=== PATIENT | female | born 1985 | race Caucasian/White ===

== ENCOUNTER 2018-03-13 17:45 | Inpatient (IN) | payer OTHER ==
[2018-03-13] MEDS ORDERED: CITRIC ACID/SODIUM CITRATE 30 ML UNIT-DOSE CUP PO ONE (19:45)
[2018-03-13] MEDS ORDERED: ELECTROLYTE-148 SOLN 1,000 ML IV SCH ×2 (19:45→20:45)
--- NOTE | 2018-03-13 20:07 | HP ---
Past Medical History - Admission History Source: Patient Limitations to Obtaining History: No Limitations - Past Medical History Cardiovascular: No: HTN Pulmonary: No: Asthma Gastrointestinal: No: GERD Hepatobiliary: No: Hepatitis B, Hepatitis C Reproductive: No: PID ...: 5 ...Para: 3 ...Term: 3 ...: 0 ...Spon : 0 ...Induced : 1 ...EDC by [facility]: 03/21/18 Infectious Disease: No: HIV, MRSA, STD's Psych: No: Anxiety, Bipolar, Depression Endocrine: Yes: Other (GDM-diet) Additional Medical History: Maternal obesity - Past Surgical History Past Surgical History: Yes: Hx Myomectomy: No Hx Transabdominal Cerclage: No - Smoking History Smoking history: Current every day smoker Have you smoked in the past 12 months: Yes Aproximately how many cigarettes per day: 15 If you are a former smoker, when did you quit?: 07/27 - Alcohol/Substance Use Hx Alcohol Use: Yes (SOCIAL, not in ) History of Substance Use: reports: None - Social History ADL: Independent History of Recent Travel: No Home Medications - Allergies Allergies/Adverse Reactions: Allergies Allergy/AdvReac Type Severity Reaction Status Date / Time Penicillins Allergy Verified 03/13/18 18:25 - Home Medications Home Medications: Ambulatory Orders Vitamins (Sjr) - 1 tab PO DAILY 07/05/15 Ferrous Sulfate [Feosol] 325 mg PO BID 02/17/18 Review of Systems - Review of Systems Constitutional: reports: No Symptoms Eyes: reports: No Symptoms HENT: reports: No Symptoms Neck: reports: No Symptoms Cardiovascular: reports: No Symptoms Respiratory: reports: No Symptoms Gastrointestinal: reports: Abdominal Pain (abdominal pain and contractions) Genitourinary: reports: No Symptoms Breasts: reports: No Symptoms Reported Musculoskeletal: reports: No Symptoms Integumentary: reports: No Symptoms Neurological: reports: No Symptoms Endocrine: reports: No Symptoms Hematology/Lymphatic: reports: No Symptoms Psychiatric: reports: No Symptoms Pain Intensity: 5 Physical Exam - Maternity Vital Signs: Vital Signs Temperature 98.0 F 03/13/18 18:07 Pulse Rate 84 03/13/18 18:07 Respiratory Rate 18 03/13/18 18:07 Blood Pressure 114/66 03/13/18 18:07 O2 Sat by Pulse Oximetry (%) Constitutional: Yes: Well Nourished, No Distress, Calm Eyes: Yes: Conjunctiva Clear HENT: Yes: Atraumatic Neck: Yes: Supple Cardiovascular: Yes: Regular Rate and Rhythm Lungs: Clear to auscultation - Abdominal Exam/OB Number of Fetuses: Single Presentation: Vertex Contractions: Yes Regularity: Irregular Intensity: Mild/Mod Monitor Mode: External Heart Rate (range): 120 Category: I Accelerations: Uniform Decelerations: None - Vaginal Exam/OB Amniotic Membrane Status: Intact - Physical Exam Edema: No Psychiatric: Yes: Alert, Oriented Hemorrhage Risk Assessment - Risk Factors Medium Risk Factors: Yes: Prior , uterine surgery,or multiple laparotomies High Risk Factors: Yes: None Risk Score: 1 Risk Level: Medium Risk Problem List - Problems (1) Uterine scar from previous delivery Code(s): O34.219 - MATERNAL CARE FOR UNSP TYPE SCAR FROM PREVIOUS DEL (2) Abdominal pain complicating Code(s): O26.899 - OTH RELATED CONDITIONS, UNSPECIFIED TRIMESTER; R10.9 - UNSPECIFIED ABDOMINAL PAIN Assessment/Plan 32 y/o with SIUP at 38.6 weeks, planned section on 03/14/18 who presents to labor and delivery with abdominal pain and contractions. Plan for repeat c section. R/B/A discussed, consents signed, questions answered anesthesia and nursery aware
[2018-03-13] MEDS ORDERED: morphine SULFATE/Preservative Free 0.5 MG/ML (1cc Syringe) EP ONE (20:32)
[2018-03-13] MEDS ORDERED: ONDANSETRON 4 MG/2 ML VIAL IVPUSH PRN (20:32)
[2018-03-13] MEDS ORDERED: morphine SULFATE/Preservative Free 0.5 MG/ML (1cc Syringe) ONE (20:39)
[2018-03-13] MEDS ORDERED: ceFAZolin SODIUM 1 GM VIAL ONE (20:45)
[2018-03-13] MEDS ORDERED: SODIUM CHLORIDE 0.9% P/F 10 ML VIAL IJ ONE (20:45)
[2018-03-13] MEDS ORDERED: BUPIVACAINE 0.75% IN DEXTROSE/PF 2ML AMPULE NR ONE (20:49)
[2018-03-13] MEDS ORDERED: ePHEDrine SULFATE 50 MG/1 ML AMPULE ONE (21:04)
[2018-03-13] MEDS ORDERED: OXYTOCIN 10 UNITS/ML VIAL ONE (21:06)
[2018-03-13] MEDS ORDERED: MIDAZOLAM HCL 2 MG/2 ML SINGLE DOSE VIAL ONE (21:15)
[2018-03-13] MEDS ORDERED: OXYTOCIN 20 UNITS in 0.9% NS 20 UNIT/1,000 ML INFUS.BAG IV ONE ×2 (21:20→22:16)
[2018-03-13] MEDS ORDERED: LABETALOL HCL 5 MG/1 ML (100MG/20 ML VIAL) ONE (21:21)
[2018-03-13] MEDS ORDERED: ACETAMINOPHEN INJECTION 100 ML IVPB ONE (21:51)
[2018-03-13] MEDS ORDERED: METHYLERGONOVINE MALEATE 0.2 MG/1 ML AMP IM PRN (21:53)
[2018-03-13] MEDS ORDERED: IBUPROFEN 600 MG TABLET (FP) PO PRN (21:53)
[2018-03-13] MEDS ORDERED: SENNOSIDES/DOCUSATE COMBO (SENNA PLUS) TABLET (UD) PO PRN (21:53)
[2018-03-13] MEDS ORDERED: OXYTOCIN 20 UNITS in 0.9% NS 20 UNIT/1,000 ML INFUS.BAG IV SCH (22:00)
[2018-03-13] MEDS: ACETAMINOPHEN 1000 MG/100 ML VIAL (NON FORMULARY) IVPB PRN (22:00)
--- NOTE | 2018-03-13 22:06 | OP ---
Operative Note - Note: Operative Date: 03/13/18 Pre-Operative Diagnosis: prior delivery, abdominal pain, contractions Operation: repeat low transverse delivery Findings: normal b/l tubes/ovaries live male Post-Operative Diagnosis: Same as Pre-op Surgeon: Gloria Felix Patient Ambassador: Slava Garcia Anesthesiologist/REFERENCE SERVICES HEAD: Michael Lawton Anesthesia: Spinal Specimens Removed: placenta Estimated Blood Loss (mls): 600 Operative Report Dictated: Yes
[2018-03-13 22:58] LABS: URINE APPEARANCE CLEAR; URINE BILIRUBIN NEGATIVE (<2.0 mg/dL); URINE COLOR YELLOW; URINE GLUCOSE (UA) NEGATIVE (NEGATIVE); URINE KETONE 2+ (NEGATIVE); URINE LEUK ESTERASE NEGATIVE (NEGATIVE); URINE NITRITE NEGATIVE (NEGATIVE); URINE PROTEIN 1+ (NEGATIVE); URINE UROBILINOGEN NEGATIVE mg/dL (0.2-1.0)
--- NOTE | 2018-03-13 23:07 | OP ---
DATE OF OPERATION: 03/13/2018 PREOPERATIVE DIAGNOSIS: Prior delivery. Abdominal pain. Uterine contractions. Declined trial of labor after . POSTOPERATIVE DIAGNOSIS: Prior delivery. Abdominal pain. Uterine contractions. Declined trial of labor after . SURGERY: Repeat low transverse section. SURGEON: Gloria Felix D.O. CAVING GUIDE: Jess Culver ANESTHESIA: Spinal. ANESTHESIOLOGIST: Michael Lawton M.D. ESTIMATED BLOOD LOSS: 600 mL . SPECIMENS REMOVED: Placenta. ESTIMATED BLOOD LOSS: 25 mL. COMPLICATIONS: Included elevated blood pressure during procedure requiring 3 doses of antihypertensive medications IV. COUNTS: Sponge, needle, instrument counts correct. DISPOSITION: Stable to PACU. BRIEF HISTORY AND PROCEDURE: Patient is a 32-year-old P3 female who had been complaining of abdominal pain and was brought to the hospital and found to have contractions on the uterine tocometer. She had a prior delivery and patient declined a trial of labor after . At this time the patient was admitted to the hospital and signed consents and was planned for repeat delivery. The patient was taken back to the operating room after consents were signed. She was given spinal anesthesia by Dr. Lawton, placed in the dorsal supine position. A Irene catheter was placed under sterile conditions. She was prepped and draped in the usual sterile fashion and a hard timeout was performed. A Pfannenstiel skin incision was created in the skin with a scalpel and carried to the underlying layer of rectus fascia with the Bovie. The fascia was incised on either side of the midline with a Bovie, and the fascial incision was carried in the superior lateral direction sharply. The fascia was tented upward and dissected off the underlying layer of rectus muscle sharpy. The muscles were identified in the midline and laterally. The peritoneum was identified and entered sharply, and the bladder blade was then inserted. A transverse incision in the lower uterine segment was made and extended in the superior lateral direction bluntly. The was delivered from the left occipital transverse position without difficulty. Bilateral shoulders delivered with ease along with the remainder of the infant. The cord was clamped twice and cut in between. The infant was taken over to the warmer to be assessed by the neonatology staff, who were present for the entire delivery. The placenta was delivered intact with a 3-vessel cord. The uterus was exteriorized and cleared of all amniotic membrane and debris with a dry lap sponge. The hysterotomy was reapproximated in a double layer closure, using 1 Vicryl suture in a running, locked fashion. Second layer was 0 Biosyn suture in a running, locked fashion. Excellent hemostasis was achieved. The posterior cul-de-sac was suctioned. Bilateral tubes and ovaries were noted to be normal. The uterus was placed back into the abdomen. Bilateral gutters were inspected and cleared of all debris. At this point, the patient did start to begin complaining of abdominal pain and nausea and vomiting. She then started to complain of severe headache. Blood pressure did elevate. Anesthesia administered 3 doses of antihypertensives to bring the pressure down. Please see anesthesia record for those doses of medication. The patient was stabilized and the surgery was resumed. The peritoneum was then reapproximated using 2-0 chromic in a running fashion. The musculature was reapproximated using 2-0 chromic suture interrupted sutures. The fascia was reapproximated using 1 Vicryl suture in a running fashion. The subcutaneous tissue was irrigated and hemostasis was achieved with Bovie cautery, and the skin was reapproximated using raquel. The patient tolerated the procedure well, and was recovering in the PACU at the time of this dictation. Sponge, needle and instrument counts were reported correct after the case. Patient's blood pressure after delivery was stabilized. Patient's headache has resolved, and her abdominal pain was improving with pain medication. Patient will be sent to ICU for monitoring overnight secondary to sudden blood pressure increase with symptoms of headache. Will plan to start magnesium and get CT imaging of head if any elevated blood pressures overnight. Also will get neurology consultation. GLORIA FELIX DO /[id number] MTDD
[2018-03-13 23:08] LABS: EPI CELLS RARE /HPF (FEW); URINE MUCUS FEW
[2018-03-13] MEDS ORDERED: SODIUM CHLORIDE 1,000 ML IV STA (23:42)
--- NOTE | 2018-03-14 00:04 | CONSULT ---
Consult Consult Specialty:: Pulm/CCM Referred by:: Dr. Felix Reason for Consultation:: medication induced hypotension - History of Present Illness History of Present Illness: 32 yo w/ no significant medical history now s/p admitted to the ICU for medication induced hypotension. Patient was transiently hypertensive with SBP ~ 240 and c/o headache intraoperatively. She subsequently received 10mg IV metoprolol, 10mg IV verapramil, 10mg IV enalarpril. Unfortunately her BP tanked to the low 100s. Per signout from L&D nurse, patient received 2L of NS +oxytocin and 1L of NS. Patient received another 1L of NS in ICU but BP still remains low with MAP in low 50s. As a result, she's admitted to the ICU for further fluid resuscitation, BP monitoring, stroke precaution and possible pressor support. Denies h/o preclampsia, chest pain, vision change, focal weakness, shortness of breath, difficulty in speech. - Past Medical History Cardio/Vascular: No: HTN Pulmonary: No: Asthma Gastrointestinal: No: GERD Hepatobiliary: No: Hepatitis B, Hepatitis C ...LMP: 06/06/12 Infectious Disease: No: HIV, MRSA, STD's Psych: No: Anxiety, Bipolar, Depression Endocrine: Yes: Other (GDM-diet) Additional Medical History: Maternal obesity - Past Surgical History Past Surgical History: Yes: - Alcohol/Substance Use Hx Alcohol Use: Yes (SOCIAL, not in ) History of Substance Use: reports: None - Smoking History Smoking history: Current every day smoker Have you smoked in the past 12 months: Yes Aproximately how many cigarettes per day: 15 If you are a former smoker, when did you quit?: 07/27 - Social History ADL: Independent History of Recent Travel: No Home Medications - Allergies Allergies/Adverse Reactions: Allergies Allergy/AdvReac Type Severity Reaction Status Date / Time Penicillins Allergy Verified 03/13/18 18:25 - Home Medications Home Medications: Ambulatory Orders Vitamins (Sjr) - 1 tab PO DAILY 07/05/15 Ferrous Sulfate [Feosol] 325 mg PO BID 02/17/18 Review of Systems - Review of Systems Constitutional: denies: Chills, Fever Eyes: denies: Blind Spots, Blurred Vision, Double Vision, Recent Change in Vision Cardiovascular: denies: Chest Pain, Palpitations, Shortness of Breath Respiratory: denies: Cough Gastrointestinal: denies: Abdominal Pain Neurological: denies: Change in LOC, Change in Speech, Confusion, Headache, Numbness, Parasthesia, Weakness Pain Intensity: 0 Physical Exam Vital Signs: Vital Signs Temperature 97.7 F 03/13/18 21:45 Pulse Rate 63 03/13/18 22:30 Respiratory Rate 18 03/13/18 22:30 Blood Pressure 75/37 L 03/13/18 22:30 O2 Sat by Pulse Oximetry (%) 100 03/13/18 22:30 Constitutional: Yes: Well Nourished, No Distress, Calm Eyes: Yes: Conjunctiva Clear, EOM Intact, PERRL HENT: Yes: Atraumatic, Normocephalic Neck: Yes: Supple, Trachea Midline Cardiovascular: Yes: Bradycardia, S1, S2. No: Murmur Respiratory: Yes: Regular, CTA Bilaterally Gastrointestinal: Yes: Other (dressing in place) Edema: No Wound/Incision: Yes: Clean/Dry. No: Bleeding Neurological: Yes: Alert, Oriented, Cran Nerves II-XII Intact. No: Aphasia Assessment/Plan 32 yo w/ no significant medical history now s/p admitted to the ICU for medication induced hypotension. A/P 1. medication induced hypotension: refractory, s/p 4L of isotonic fluids, will start dopamine gtt in light of bradycardia and peripherally in anticipation of short duration of pressor support (< 4hours) 2. s/p w/ 600cc blood loss: repeat CBC and BMP Stephen Kirby MD ICU resident Visit type - Emergency Visit Emergency Visit: No - New Patient This patient is new to me today: Yes Date on this admission: 03/14/18 - Critical Care Critical Care patient: Yes Total Critical Care Time (in minutes): 35 Critical Care Statement: The care of this patient involved high complexity decision making to prevent further life threatening deterioration of the patient 's condition and/or to evaluate & treat vital organ system(s) failure or risk of failure.
[2018-03-14 01:13] LABS: HEMATOCRIT 32.6 % (32.4-45.2); HEMOGLOBIN 11.2 GM/dL (10.7-15.3); MCH 30.8 pg (25.7-33.7); MCHC 34.5 g/dl (32.0-36.0); MEAN CELL VOLUME 89.4 fl (80-96); MEAN PLT VOLUME 10.7 fl (7.5-11.1); PLATELET COUNT 123 K/MM3 (134-434); RBC 3.65 M/mm3 (3.60-5.2); WHITE BLOOD COUNT 12.7 K/mm3 (4.0-10.0)
[2018-03-14] MEDS ORDERED: DOPAMINE 400 MG/D5W - 400,000 MCG/250 ML INFUS.BAG IVPB SCH (01:15)
[2018-03-14 01:35] LABS: ANION GAP 7 MMOL/L (8-16); BLOOD UREA NITROGEN 7 mg/dL (7-18); CHLORIDE 114 mmol/L (98-107); CO2 20 mmol/L (21-32); CREATININE 0.4 mg/dL (0.55-1.3); GLUCOSE,RANDOM 78 mg/dL (74-106); MAGNESIUM 1.5 mg/dL (1.8-2.4); POTASSIUM 3.6 mmol/L (3.5-5.1); SODIUM 141 mmol/L (136-145)
[2018-03-14 01:41] LABS: CALCIUM 6.4 mg/dL (8.5-10.1)
[2018-03-14] MEDS ORDERED: MAGNESIUM SULF 50% (8.12 MEQ/2 ML-1 GM VIAL) IVPB ONE ×2 (01:46→07:24)
[2018-03-14 02:26] LABS: ALBUMIN 1.8 g/dl (3.4-5.0); ALK PHOS 74 U/L (45-117); ANION GAP 9 MMOL/L (8-16); BILIRUBIN,TOTAL 0.1 mg/dL (0.2-1); BLOOD UREA NITROGEN 7 mg/dL (7-18); CHLORIDE 114 mmol/L (98-107); CO2 20 mmol/L (21-32); CREATININE 0.4 mg/dL (0.55-1.3); GLUCOSE,RANDOM 80 mg/dL (74-106); POTASSIUM 3.6 mmol/L (3.5-5.1); SGOT/AST 45 U/L (15-37); SGPT/ALT 56 U/L (13-61); SODIUM 142 mmol/L (136-145); TOT PROT 4.4 g/dl (6.4-8.2)
[2018-03-14 02:28] LABS: CALCIUM 6.4 mg/dL (8.5-10.1)
[2018-03-14] MEDS: ACETAMINOPHEN 1000 MG/100 ML VIAL (NON FORMULARY) IVPB PRN ×2 (03:07→16:06)
[2018-03-14 05:49] LABS: BASO % 0.5 % (0-2.0); EOS % 0.9 % (0-4.5); HEMOGLOBIN 11.8 GM/dL (10.7-15.3); LYMPH % 15.3 % (8-40); MCH 29.2 pg (25.7-33.7); MCHC 31.9 g/dl (32.0-36.0); MEAN CELL VOLUME 91.6 fl (80-96); MEAN PLT VOLUME 10.4 fl (7.5-11.1); MONO % 4.7 % (3.8-10.2); NEUT % 78.6 % (42.8-82.8); PLATELET COUNT 118 K/MM3 (134-434); RBC 4.04 M/mm3 (3.60-5.2); RDW 14.4 % (11.6-15.6)
[2018-03-14] MEDS: oxyCODONE HCL 5 MG TABLET PO PRN (05:55)
[2018-03-14 06:34] LABS: ANION GAP 7 MMOL/L (8-16); BLOOD UREA NITROGEN 6 mg/dL (7-18); CHLORIDE 110 mmol/L (98-107); CO2 22 mmol/L (21-32); CREATININE 0.5 mg/dL (0.55-1.3); GLUCOSE,RANDOM 113 mg/dL (74-106); POTASSIUM 4.2 mmol/L (3.5-5.1); SODIUM 140 mmol/L (136-145)
[2018-03-14 06:42] LABS: CALCIUM 6.8 mg/dL (8.5-10.1)
--- NOTE | 2018-03-14 06:48 | PN ---
Post Progress Note - Subjective Subjective: pt seen and evaluated. feeling well. thirsty. denies CARRILLO/CP/RUQ pain or changes in vision. BP 111/50 upon my entry to room on dopamine. No flatus yet. Abdominal pain controlled with medications. Not yet OOB. Moncada catheter draining clear yellow urine. Type of Delivery: Repeat C/S Vital Signs: Vital Signs Temperature 98.9 F 03/14/18 06:00 Pulse Rate 59 L 03/14/18 06:00 Respiratory Rate 23 H 03/14/18 06:00 Blood Pressure 119/61 03/14/18 06:00 O2 Sat by Pulse Oximetry (%) 100 03/14/18 00:13 Uterus: Yes: Fundus Firm Incision: Yes: Dressing dry and intact Abdomen/GI: Yes: Abdomen soft, Tender (appropriate post surgical tenderness) Lochia: Yes: Rubra Lochia, amount: Moderate Perineum: No: Intact - Labs Labs: CBC WBC 11.0 K/mm3 (4.0-10.0) H 03/14/18 05:15 RBC 4.04 M/mm3 (3.60-5.2) 03/14/18 05:15 Hgb 11.8 GM/dL (10.7-15.3) 03/14/18 05:15 Hct 37.0 % (32.4-45.2) 03/14/18 05:15 MCV 91.6 fl (80-96) 03/14/18 05:15 MCH 29.2 pg (25.7-33.7) 03/14/18 05:15 MCHC 31.9 g/dl (32.0-36.0) L 03/14/18 05:15 RDW 14.4 % (11.6-15.6) 03/14/18 05:15 Plt Count 118 K/MM3 (134-434) L 03/14/18 05:15 MPV 10.4 fl (7.5-11.1) 03/14/18 05:15 Absolute Neuts (auto) 8.7 K/mm3 (1.5-8.0) H 03/14/18 05:15 Neutrophils % 78.6 % (42.8-82.8) 03/14/18 05:15 Lymphocytes % 15.3 % (8-40) 03/14/18 05:15 Monocytes % 4.7 % (3.8-10.2) 03/14/18 05:15 Eosinophils % 0.9 % (0-4.5) 03/14/18 05:15 Basophils % 0.5 % (0-2.0) 03/14/18 05:15 Nucleated RBC % 0 % (0-0) 03/14/18 05:15 Problem List - Problems (1) Uterine scar from previous delivery Code(s): O34.219 - MATERNAL CARE FOR UNSP TYPE SCAR FROM PREVIOUS DEL (2) Abdominal pain complicating Code(s): O26.899 - OTH RELATED CONDITIONS, UNSPECIFIED TRIMESTER; R10.9 - UNSPECIFIED ABDOMINAL PAIN (3) Hypotension after procedure Code(s): I95.81 - POSTPROCEDURAL HYPOTENSION Assessment/Plan clear diet blood pressure control per medical/icu team if able to stabilize BP can dc from ICU to floor lovenox scds discontinue moncada catheter this afternoon/evening strict I/Os for now
[2018-03-14] MEDS ORDERED: SODIUM CHLORIDE 1,000 ML IV SCH (07:00)
[2018-03-14] MEDS: LACTATED RINGERS SOLUTION 1,000 ML/1,000 ML INFUS.BAG IV SCH ×2 (08:00→10:00)
[2018-03-14 08:07] LABS: MAGNESIUM 1.9 mg/dL (1.8-2.4)
--- NOTE | 2018-03-14 08:07 | PN ---
Progress Note (short form) - Note Progress Note: Anesthesia/pain Pt seen and examined S:Alert and awake comfortable O: CBC, BMP 03/14/18 05:15 03/14/18 05:15 Vital Signs Temperature 98.9 F 03/14/18 06:00 Pulse Rate 59 L 03/14/18 06:00 Respiratory Rate 23 H 03/14/18 06:00 Blood Pressure 119/61 03/14/18 06:00 O2 Sat by Pulse Oximetry (%) 100 03/14/18 00:13 A/P: Current Active Problems Abdominal pain complicating (Acute) Hypotension after procedure (Acute) Uterine scar from previous delivery (Acute) s/p c section BP stablized Doing well post op Continue current care Massimo Thornton MD
--- NOTE | 2018-03-14 08:23 | PN ---
Physical Exam: SUBJECTIVE: Patient seen and examined at bedside. Headaches resolved. Abdominal pain c/w s/p . No flatus as yet. C/o nausea. No CP, no SOB, no lightheadedness. Eager for downgrade to maternity unit. OBJECTIVE: Vital Signs Period Temp Pulse Resp BP Sys/Boston Pulse Ox Last 24 Hr 97.4 F-98.9 F 54-90 18-23 75-119/36-74 100-100 GENERAL: A&Ox3, NAD HEAD: NC/AT EYES: PERRLA, EOMI ENT: MMM NECK: Trachea midline, full range of motion, supple. LUNGS: CTA b/l HEART: RRR no m/r/g ABDOMEN: distant bs, soft, tenderness c/w post-surgical status, dressing c/d/i EXTREMITIES: 2+ pulses, warm, well-perfused, no edema. NEUROLOGICAL: scutcher tender, motor, sensory systems w/o focal deficit PSYCH: Normal mood, normal affect. SKIN: Warm, dry, normal turgor, no rashes or lesions noted Laboratory Results - last 24 hr 03/13/18 03/14/18 03/14/18 22:45 01:00 01:00 WBC 12.7 H RBC 3.65 Hgb 11.2 Hct 32.6 MCV 89.4 MCH 30.8 MCHC 34.5 RDW 14.0 Plt Count 123 L MPV 10.7 Absolute Neuts (auto) Neutrophils % Lymphocytes % Monocytes % Eosinophils % Basophils % Nucleated RBC % Sodium 141 Potassium 3.6 Chloride 114 H Carbon Dioxide 20 L Anion Gap 7 L BUN 7 Creatinine 0.4 L Creat Clearance w eGFR > 60 Random Glucose 78 Calcium 6.4 L* Magnesium 1.5 L Total Bilirubin AST ALT Alkaline Phosphatase Total Protein Albumin Urine Color Yellow Urine Appearance Clear Urine pH 6.0 Ur Specific [place] 1.033 Urine Protein 1+ H Urine Glucose (UA) Negative Urine Ketones 2+ H Urine Blood 1+ H Urine Nitrite Negative Urine Bilirubin Negative Urine Urobilinogen Negative Ur Leukocyte Esterase Negative Urine WBC (Auto) None Urine RBC (Auto) 27 Ur Epithelial Cells Rare Urine Mucus Few 03/14/18 03/14/18 03/14/18 01:00 05:15 05:15 WBC 11.0 H RBC 4.04 Hgb 11.8 Hct 37.0 MCV 91.6 MCH 29.2 MCHC 31.9 L RDW 14.4 Plt Count 118 L MPV 10.4 Absolute Neuts (auto) 8.7 H Neutrophils % 78.6 Lymphocytes % 15.3 Monocytes % 4.7 Eosinophils % 0.9 Basophils % 0.5 Nucleated RBC % 0 Sodium 142 140 Potassium 3.6 4.2 Chloride 114 H 110 H Carbon Dioxide 20 L 22 Anion Gap 9 7 L BUN 7 6 L Creatinine 0.4 L 0.5 L Creat Clearance w eGFR > 60 > 60 Random Glucose 80 113 H Calcium 6.4 L* 6.8 L* Magnesium 1.9 Total Bilirubin 0.1 L AST 45 H ALT 56 Alkaline Phosphatase 74 Total Protein 4.4 L Albumin 1.8 L Urine Color Urine Appearance Urine pH Ur Specific [place] Urine Protein Urine Glucose (UA) Urine Ketones Urine Blood Urine Nitrite Urine Bilirubin Urine Urobilinogen Ur Leukocyte Esterase Urine WBC (Auto) Urine RBC (Auto) Ur Epithelial Cells Urine Mucus Active Medications Generic Name Dose Route Start Last Admin Trade Name Freq PRN Reason Stop Dose Admin Acetaminophen 1,000 mg 03/13/18 21:48 03/14/18 03:07 Ofirmev Injection - IVPB 1,000 mg Q6H PRN Administration PAIN LEVEL 6-10 Bisacodyl 10 mg 03/14/18 21:53 Dulcolax Suppository - RC DAILY PRN CONSTIPATION Diphenhydramine HCl 25 mg 03/13/18 20:32 Benadryl Injection - IVPUSH Q4H PRN Pruritis Enoxaparin Sodium 40 mg 03/14/18 10:00 Lovenox - SQ DAILY KHADRA Parenteral Electrolytes 1,000 mls @ 125 mls/hr 03/13/18 20:45 03/14/18 00:26 Plasma-Lyte 148 - IV Not Given ASDIR KHADRA Dopamine HCl/Dextrose 400,000 mcg in 250 mls @ 14.969 mls/hr 03/14/18 01:15 03/14/18 03:00 Dopamine 400 Mg/D5w - IVPB 5 mcg/kg/min TITR KHADRA 14.969 mls/hr Titration Protocol 5 MCG/KG/MIN Sodium Chloride 1,000 mls @ 100 mls/hr 03/14/18 07:00 Normal Saline - IV ASDIR KHADRA Ondansetron HCl 4 mg 03/13/18 20:32 Zofran Injection IVPUSH Q4H PRN NAUSEA Oxycodone HCl 5 mg 03/13/18 21:53 03/14/18 05:55 Roxicodone - PO 5 mg Q4H PRN Administration PAIN LEVEL 4 - 6 Oxycodone HCl 10 mg 03/13/18 21:53 Roxicodone - PO Q4H PRN PAIN LEVEL 7 - 10 Multivit/Folic Acid/Iron 1 tab 03/14/18 10:00 Vitamins (Sjr) - PO DAILY KHADRA Senna/Docusate Sodium 2 tablet 03/13/18 21:53 Pericolace - PO HS PRN CONSTIPATION Simethicone 80 mg 03/13/18 21:53 Mylicon - PO Q4H PRN GAS ASSESSMENT/PLAN: 32 y/o F w/ no significant PMHx s/p , admitted to ICU for medication-induced hypotension following transient damian-operative hypertensive urgency. #hypotension -600cc blood loss operatively -H/H stable -received 5L crystalloid resuscitation -was on standing NS @ 100, now switched to LR @ 100 -on peripherally administered dopamine maintaining MAP > 65 -providing further fluid boluses, downtitrating and discontinuing dopamine #FEN -LR @ 100 -monitor and correct electrolytes; exercise caution in administering magnesium given hypotension -clear liquid, adv to regular with flatus #PPx -DVT: Lovenox -GI: not indicated #code -full #dispo -transfer to maternity when weaned from pressor support Visit type - Emergency Visit Emergency Visit: No - New Patient This patient is new to me today: Yes Date on this admission: 03/14/18 - Critical Care Critical Care patient: Yes Total Critical Care Time (in minutes): 40 Critical Care Statement: The care of this patient involved high complexity decision making to prevent further life threatening deterioration of the patient 's condition and/or to evaluate & treat vital organ system(s) failure or risk of failure.
[2018-03-14] MEDS: ENOXAPARIN NA (PORCINE) 40 MG/0.4 ML DISP.SYRIN SQ SCH (09:43)
[2018-03-14] MEDS ORDERED: LACTATED RINGERS SOLUTION 1000 ML INFUS.BAG IV ONE ×4 (10:02→12:20)
--- NOTE | 2018-03-14 11:30 | PN ---
Teaching Attending Note Name of Resident: Rohit Davies ATTENDING PHYSICIAN STATEMENT I saw and evaluated the patient. I reviewed the resident's note and discussed the case with the resident. I agree with the resident's findings and plan as documented. SUBJECTIVE: Patient seen and examined at bedside. No headache. Minimal abdominal discomfort. Dopamine @ 4 mcq for hemodynamic support. Intake & Output 03/11/18 03/12/18 03/13/18 03/14/18 23:59 23:59 23:59 23:59 Intake Total 2598 Output Total 2000 Balance 598 Weight 176 lb 178 lb 8 oz Last Vital Signs Temp Pulse Resp BP Pulse Ox 98.1 F 74 19 99/64 100 03/14/18 10:00 03/14/18 10:00 03/14/18 10:00 03/14/18 10:00 03/14/18 00:13 Active Medications Acetaminophen (Ofirmev Injection -) 1,000 mg IVPB Q6H PRN PRN Reason: PAIN LEVEL 6-10 Last Admin: 03/14/18 03:07 Dose: 1,000 mg Bisacodyl (Dulcolax Suppository -) 10 mg RC DAILY PRN PRN Reason: CONSTIPATION Diphenhydramine HCl (Benadryl Injection -) 25 mg IVPUSH Q4H PRN PRN Reason: Pruritis Enoxaparin Sodium (Lovenox -) 40 mg SQ DAILY KHADRA Last Admin: 03/14/18 09:43 Dose: 40 mg Dopamine HCl/Dextrose (Dopamine 400 Mg/D5w -) 400,000 mcg in 250 mls @ 14.969 mls/hr IVPB TITR KHADRA; Protocol Last Titration: 03/14/18 07:00 Dose: 4 mcg/kg/min, 11.975 mls/hr Lactated Ringer's (Lactated Ringers Solution) 1,000 ml in 1,000 mls @ 100 mls/ hr IV ASDIR KHADRA Last Admin: 03/14/18 08:00 Dose: 100 mls/hr Lactated Ringer's (Lactated Ringers Solution) 1,000 ml IV ONCE ONE Stop: 03/14/18 11:21 Lactated Ringer's (Lactated Ringers Solution) 1,000 ml IV ONCE ONE Stop: 03/14/18 12:21 Ondansetron HCl (Zofran Injection) 4 mg IVPUSH Q4H PRN PRN Reason: NAUSEA Last Admin: 03/14/18 08:29 Dose: 4 mg Oxycodone HCl (Roxicodone -) 5 mg PO Q4H PRN PRN Reason: PAIN LEVEL 4 - 6 Last Admin: 03/14/18 05:55 Dose: 5 mg Oxycodone HCl (Roxicodone -) 10 mg PO Q4H PRN PRN Reason: PAIN LEVEL 7 - 10 Multivit/Folic Acid/Iron ( Vitamins (Sjr) -) 1 tab PO DAILY KHADRA Senna/Docusate Sodium (Pericolace -) 2 tablet PO HS PRN PRN Reason: CONSTIPATION Simethicone (Mylicon -) 80 mg PO Q4H PRN PRN Reason: GAS OBJECTIVE: Intake & Output 03/11/18 03/12/18 03/13/18 03/14/18 23:59 23:59 23:59 23:59 Intake Total 2598 Output Total 2000 Balance 598 Weight 176 lb 178 lb 8 oz Last Vital Signs Temp Pulse Resp BP Pulse Ox 98.1 F 74 19 99/64 100 03/14/18 10:00 03/14/18 10:00 03/14/18 10:00 03/14/18 10:00 03/14/18 00:13 Active Medications Acetaminophen (Ofirmev Injection -) 1,000 mg IVPB Q6H PRN PRN Reason: PAIN LEVEL 6-10 Last Admin: 03/14/18 03:07 Dose: 1,000 mg Bisacodyl (Dulcolax Suppository -) 10 mg RC DAILY PRN PRN Reason: CONSTIPATION Diphenhydramine HCl (Benadryl Injection -) 25 mg IVPUSH Q4H PRN PRN Reason: Pruritis Enoxaparin Sodium (Lovenox -) 40 mg SQ DAILY KHADRA Last Admin: 03/14/18 09:43 Dose: 40 mg Dopamine HCl/Dextrose (Dopamine 400 Mg/D5w -) 400,000 mcg in 250 mls @ 14.969 mls/hr IVPB TITR KHADRA; Protocol Last Titration: 03/14/18 07:00 Dose: 4 mcg/kg/min, 11.975 mls/hr Lactated Ringer's (Lactated Ringers Solution) 1,000 ml in 1,000 mls @ 100 mls/ hr IV ASDIR KHADRA Last Admin: 03/14/18 08:00 Dose: 100 mls/hr Lactated Ringer's (Lactated Ringers Solution) 1,000 ml IV ONCE ONE Stop: 03/14/18 11:21 Lactated Ringer's (Lactated Ringers Solution) 1,000 ml IV ONCE ONE Stop: 03/14/18 12:21 Ondansetron HCl (Zofran Injection) 4 mg IVPUSH Q4H PRN PRN Reason: NAUSEA Last Admin: 03/14/18 08:29 Dose: 4 mg Oxycodone HCl (Roxicodone -) 5 mg PO Q4H PRN PRN Reason: PAIN LEVEL 4 - 6 Last Admin: 03/14/18 05:55 Dose: 5 mg Oxycodone HCl (Roxicodone -) 10 mg PO Q4H PRN PRN Reason: PAIN LEVEL 7 - 10 Multivit/Folic Acid/Iron ( Vitamins (Sjr) -) 1 tab PO DAILY KHADRA Senna/Docusate Sodium (Pericolace -) 2 tablet PO HS PRN PRN Reason: CONSTIPATION Simethicone (Mylicon -) 80 mg PO Q4H PRN PRN Reason: GAS GENERAL: A&Ox3, NAD HEAD: NC/AT EYES: PERRLA, EOMI ENT: MMM NECK: Trachea midline, full range of motion, supple. LUNGS: CTA b/l HEART: RRR no m/r/g ABDOMEN: (+) BS, soft, tenderness c/w post-surgical status, dressing c/d/i EXTREMITIES: 2+ pulses, warm, well-perfused, no edema. 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 SKIN: Warm, dry, normal turgor, no rashes or lesions noted Laboratory Results - last 24 hr 03/13/18 03/14/18 03/14/18 22:45 01:00 01:00 WBC 12.7 H RBC 3.65 Hgb 11.2 Hct 32.6 MCV 89.4 MCH 30.8 MCHC 34.5 RDW 14.0 Plt Count 123 L MPV 10.7 Absolute Neuts (auto) Neutrophils % Lymphocytes % Monocytes % Eosinophils % Basophils % Nucleated RBC % Sodium 141 Potassium 3.6 Chloride 114 H Carbon Dioxide 20 L Anion Gap 7 L BUN 7 Creatinine 0.4 L Creat Clearance w eGFR > 60 Random Glucose 78 Calcium 6.4 L* Magnesium 1.5 L Total Bilirubin AST ALT Alkaline Phosphatase Total Protein Albumin Urine Color Yellow Urine Appearance Clear Urine pH 6.0 Ur Specific [place] 1.033 Urine Protein 1+ H Urine Glucose (UA) Negative Urine Ketones 2+ H Urine Blood 1+ H Urine Nitrite Negative Urine Bilirubin Negative Urine Urobilinogen Negative Ur Leukocyte Esterase Negative Urine WBC (Auto) None Urine RBC (Auto) 27 Ur Epithelial Cells Rare Urine Mucus Few 03/14/18 03/14/18 03/14/18 01:00 05:15 05:15 WBC 11.0 H RBC 4.04 Hgb 11.8 Hct 37.0 MCV 91.6 MCH 29.2 MCHC 31.9 L RDW 14.4 Plt Count 118 L MPV 10.4 Absolute Neuts (auto) 8.7 H Neutrophils % 78.6 Lymphocytes % 15.3 Monocytes % 4.7 Eosinophils % 0.9 Basophils % 0.5 Nucleated RBC % 0 Sodium 142 140 Potassium 3.6 4.2 Chloride 114 H 110 H Carbon Dioxide 20 L 22 Anion Gap 9 7 L BUN 7 6 L Creatinine 0.4 L 0.5 L Creat Clearance w eGFR > 60 > 60 Random Glucose 80 113 H Calcium 6.4 L* 6.8 L* Magnesium 1.9 Total Bilirubin 0.1 L AST 45 H ALT 56 Alkaline Phosphatase 74 Total Protein 4.4 L Albumin 1.8 L Urine Color Urine Appearance Urine pH Ur Specific [place] Urine Protein Urine Glucose (UA) Urine Ketones Urine Blood Urine Nitrite Urine Bilirubin Urine Urobilinogen Ur Leukocyte Esterase Urine WBC (Auto) Urine RBC (Auto) Ur Epithelial Cells Urine Mucus ASSESSMENT/PLAN: Resolving Hypotension: (?) Due to medications Transient Monisha-operative hypertensive urgency S/P C section 03/13 Wean Dopamine Increase IVF resuscitation PO as tolerated VTE prophylaxis Monitor I & O Incentive Spirometry ICU monitoring while on pressors Dr Davies Critical care time spent in reviewing chart, evaluating patient and formulating plan - 36 minutes.
[2018-03-14] MEDS ORDERED: LACTATED RINGERS SOLUTION 1,000 ML/1,000 ML INFUS.BAG IV SCH (13:06)
--- NOTE | 2018-03-14 14:38 | CON.NEURO ---
Consult - Past Medical History Cardio/Vascular: No: HTN Pulmonary: No: Asthma Gastrointestinal: No: GERD Hepatobiliary: No: Hepatitis B, Hepatitis C ...LMP: 06/06/12 Infectious Disease: No: HIV, MRSA, STD's Psych: No: Anxiety, Bipolar, Depression Endocrine: Yes: Other (GDM-diet) Additional Medical History: Maternal obesity - Past Surgical History Past Surgical History: Yes: - Alcohol/Substance Use Hx Alcohol Use: Yes (SOCIAL, not in ) History of Substance Use: reports: None - Smoking History Smoking history: Current every day smoker Have you smoked in the past 12 months: Yes Aproximately how many cigarettes per day: 15 If you are a former smoker, when did you quit?: 07/27 - Social History ADL: Independent History of Recent Travel: No Home Medications - Allergies Allergies/Adverse Reactions: Allergies Allergy/AdvReac Type Severity Reaction Status Date / Time Penicillins Allergy Verified 03/13/18 18:25 - Home Medications Home Medications: Ambulatory Orders Vitamins (Sjr) - 1 tab PO DAILY 07/05/15 Ferrous Sulfate [Feosol] 325 mg PO BID 02/17/18 Physical Exam-Neuro Vital Signs: Vital Signs Temperature 98.1 F 03/14/18 10:00 Pulse Rate 70 03/14/18 12:25 Respiratory Rate 19 03/14/18 10:00 Blood Pressure 111/53 L 03/14/18 12:25 O2 Sat by Pulse Oximetry (%) 100 03/14/18 00:13 Labs: CBC, BMP 03/14/18 05:15 03/14/18 05:15 Assessment/Plan cc Severe Headache for one day HPI 32 year old female history of labile headache during and occasional migraine. Patient has very severe headache yesterday at the same time , when her bp went up. After treating with medication, her bp dropped and now she is on pressors. Patient is feeling fine now and no headhace, no fever or trauma. There is no history of Sah in her family Medical History as above Social History, Family History, and ROS reviewed in chart Allergies/Adverse Reactions: Allergies Allergy/AdvReac Type Severity Reaction Status Date / Time Penicillins Allergy Verified 03/13/18 18:25 Home Medications: Vitamins (Sjr) - 1 tab PO DAILY 07/05/15 Ferrous Sulfate [Feosol] 325 mg PO BID 02/17/18 NEUROLOGICAL Examiantion Alert oriented x 3, speech is normal EOMI, Pupils reactive, VF normal by confrontation Movign all extremity sensation is normal reflex are symmetrical NO recent brain imaging Assessment/Plan Severe headache coinciding with very high bp. there is no focal neurological symptoms or sign and headhace is completely resolved, and there is no neck stiffness ( unlikley to be Meningitis or SAH) Plan: discussed need for ct head , patient is reluctant, suspician for sah is low and would hold for now - If headhace recurs or any focal neuro symptoms, please do get stat ct head - Neurocheck for now Thanking you so much Vin Sánchez MD
[2018-03-14] MEDS: PRENATAL VITAMINS W/ FOLIC ACID TABLET (FP) PO SCH (16:00)
[2018-03-14 16:06] VITALS: BMI 32.5
[2018-03-14] MEDS ORDERED: BISACODYL 10 MG SUPP.RECT RC PRN (21:53)
[2018-03-15] MEDS: SIMETHICONE 80 MG TAB.CHEW (FP) PO PRN ×5 (01:39→21:37)
[2018-03-15] MEDS: oxyCODONE HCL 5 MG TABLET PO PRN ×5 (01:42→21:37)
[2018-03-15 08:08] LABS: BASO % 0.5 % (0-2.0); EOS % 0.7 % (0-4.5); HEMATOCRIT 30.6 % (32.4-45.2); HEMOGLOBIN 10.7 GM/dL (10.7-15.3); MCH 31.1 pg (25.7-33.7); MCHC 35.1 g/dl (32.0-36.0); MEAN CELL VOLUME 88.8 fl (80-96); MEAN PLT VOLUME 10.3 fl (7.5-11.1); MONO % 5.2 % (3.8-10.2); NEUT % 79.6 % (42.8-82.8); PLATELET COUNT 120 K/MM3 (134-434); RBC 3.45 M/mm3 (3.60-5.2); RDW 14.1 % (11.6-15.6); WHITE BLOOD COUNT 9.9 K/mm3 (4.0-10.0)
[2018-03-15 08:23] LABS: ANION GAP 6 MMOL/L (8-16); BLOOD UREA NITROGEN 3 mg/dL (7-18); CALCIUM 7.6 mg/dL (8.5-10.1); CHLORIDE 106 mmol/L (98-107); CO2 24 mmol/L (21-32); CREATININE 0.4 mg/dL (0.55-1.3); GLUCOSE,RANDOM 92 mg/dL (74-106); MAGNESIUM 1.5 mg/dL (1.8-2.4); PHOSPHOROUS 3.6 mg/dL (2.5-4.9); POTASSIUM 3.6 mmol/L (3.5-5.1); SODIUM 137 mmol/L (136-145)
[2018-03-15] MEDS: ACETAMINOPHEN 1000 MG/100 ML VIAL (NON FORMULARY) IVPB PRN (08:26)
--- NOTE | 2018-03-15 09:16 | PN ---
Post Progress Note - Subjective Subjective: Pt seen/evaluated. Feeling much improved. Tolerating clears, has appetite for regular diet. +flatus. Abdomen soft. Lochia minimal. Ambulating and voiding. Feels tired. Type of Delivery: Repeat C/S Vital Signs: Vital Signs Temperature 98.5 F 03/15/18 08:55 Pulse Rate 70 03/15/18 08:55 Respiratory Rate 18 03/15/18 08:55 Blood Pressure 109/59 L 03/15/18 08:55 O2 Sat by Pulse Oximetry (%) 100 03/14/18 00:13 Breast Exam: Yes: Soft Uterus: Yes: Fundus Firm Incision: Yes: [place] intact Abdomen/GI: Yes: Abdomen soft Lochia: Yes: Rubra Lochia, amount: Small Extremities: No: Edema Perineum: Yes: Intact Activity: Ambulating - Labs Labs: CBC WBC 9.9 K/mm3 (4.0-10.0) 03/15/18 07:33 RBC 3.45 M/mm3 (3.60-5.2) L 03/15/18 07:33 Hgb 10.7 GM/dL (10.7-15.3) 03/15/18 07:33 Hct 30.6 % (32.4-45.2) L D 03/15/18 07:33 MCV 88.8 fl (80-96) 03/15/18 07:33 MCH 31.1 pg (25.7-33.7) 03/15/18 07:33 MCHC 35.1 g/dl (32.0-36.0) 03/15/18 07:33 RDW 14.1 % (11.6-15.6) 03/15/18 07:33 Plt Count 120 K/MM3 (134-434) L 03/15/18 07:33 MPV 10.3 fl (7.5-11.1) 03/15/18 07:33 Absolute Neuts (auto) 7.9 K/mm3 (1.5-8.0) 03/15/18 07:33 Neutrophils % 79.6 % (42.8-82.8) 03/15/18 07:33 Lymphocytes % 14.0 % (8-40) 03/15/18 07:33 Monocytes % 5.2 % (3.8-10.2) 03/15/18 07:33 Eosinophils % 0.7 % (0-4.5) 03/15/18 07:33 Basophils % 0.5 % (0-2.0) 03/15/18 07:33 Nucleated RBC % 0 % (0-0) 03/15/18 07:33 Problem List - Problems (1) Uterine scar from previous delivery Code(s): O34.219 - MATERNAL CARE FOR UNSP TYPE SCAR FROM PREVIOUS DEL (2) Abdominal pain complicating Code(s): O26.899 - OTH RELATED CONDITIONS, UNSPECIFIED TRIMESTER; R10.9 - UNSPECIFIED ABDOMINAL PAIN (3) Hypotension after procedure Code(s): I95.81 - POSTPROCEDURAL HYPOTENSION Assessment/Plan regular diet blood pressure control stabilized, transfered out of ICU overnight to floor lovenox scds regular diet PO pain meds if has headache will do neuro workup but pt feels well now, currently declines CT scan
[2018-03-15] MEDS: PRENATAL VITAMINS W/ FOLIC ACID TABLET (FP) PO SCH (09:30)
[2018-03-15] MEDS: ENOXAPARIN NA (PORCINE) 40 MG/0.4 ML DISP.SYRIN SQ SCH (09:30)
[2018-03-15] MEDS: IBUPROFEN 600 MG TABLET (FP) PO PRN ×2 (12:37→17:17)
[2018-03-16] MEDS: oxyCODONE HCL 5 MG TABLET PO PRN ×5 (01:56→22:07)
[2018-03-16] MEDS: IBUPROFEN 600 MG TABLET (FP) PO PRN ×4 (01:57→22:07)
[2018-03-16] MEDS: SIMETHICONE 80 MG TAB.CHEW (FP) PO PRN ×4 (06:04→22:07)
[2018-03-16 08:37] LABS: BASO % 0.2 % (0-2.0); EOS % 2.1 % (0-4.5); HEMATOCRIT 30.2 % (32.4-45.2); HEMOGLOBIN 9.9 GM/dL (10.7-15.3); LYMPH % 20.5 % (8-40); MCH 29.3 pg (25.7-33.7); MCHC 32.8 g/dl (32.0-36.0); MEAN CELL VOLUME 89.5 fl (80-96); MEAN PLT VOLUME 10.2 fl (7.5-11.1); MONO % 4.7 % (3.8-10.2); NEUT % 72.5 % (42.8-82.8); PLATELET COUNT 120 K/MM3 (134-434); RBC 3.37 M/mm3 (3.60-5.2); RDW 14.1 % (11.6-15.6); WHITE BLOOD COUNT 9.2 K/mm3 (4.0-10.0)
[2018-03-16] MEDS: PRENATAL VITAMINS W/ FOLIC ACID TABLET (FP) PO SCH (09:39)
[2018-03-16] MEDS: ENOXAPARIN NA (PORCINE) 40 MG/0.4 ML DISP.SYRIN SQ SCH (09:39)
[2018-03-16] MEDS ORDERED: TUBERCULIN PPD 5 TU/0.1ML SYRINGE (IN PATIENT USE ONLY) ID ONE (14:45)
[2018-03-16] MEDS ORDERED: DIPHTH,PERTUSS(ACELL),TET 0.5 ML DISP.SYRIN IM ONE (15:00)
[2018-03-16 20:36] VITALS: TEMP 98.1
[2018-03-17] MEDS: SIMETHICONE 80 MG TAB.CHEW (FP) PO PRN ×2 (01:38→06:36)
[2018-03-17] MEDS: IBUPROFEN 600 MG TABLET (FP) PO PRN ×2 (01:39→06:36)
[2018-03-17] MEDS: oxyCODONE HCL 5 MG TABLET PO PRN ×2 (01:39→06:36)
--- NOTE | 2018-03-17 07:06 | DS ---
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 Pt underwent repeat delivery. The surgery itself was uncomplicated. During the surgery the patient had sudden HTN and headache, received antihypertensives per anesthesia and s/p procedure was sent to ICU for monitoring. Pt was on Dopamine gtt for approx 24 hours and then was stabilized and sent to the floor. Neurology evaluated the patient as well. After the patient went to the normal post floor she recovered without complication/ issue and was discharged home on post op day 4. - Instructions Diet, Activity, Other Instructions: Physical activity Resume your normal everyday activity as tolerated no heavy lifting or exercise until seen by your surgeon. You may walk unlimited agustin of and climb stairs. You may resume driving the car when you feel safe and comfortable behind the wheel. No sexual activity as instructed. Wound care Please return to the office in 1 week for stable removal. Diet There are no dietary restrictions. Eat healthy, high-fiber foods. Drink 6 to 8 glasses of liquid each day. This will assist in keeping your bowels regular. Pain management You may take Tylenol or Ibuprofen (for example, Motrin, Advil etc.) for mild pain. If any prescription mediation is sent to the pharmacy it should be taken as prescribed for moderate to severe pain. Call MD for any of the following: Severe pain not relieved by medication Fever of 101 or higher Excessive bleeding or drainage on dressing Inability to urinate Disposition: HOME - Home Medications Comprehensive Discharge Medication List: Ambulatory Orders Vitamins (Sjr) - 1 tab PO DAILY 07/05/15 Ferrous Sulfate [Feosol] 325 mg PO BID 02/17/18
[2018-03-17] MEDS: PRENATAL VITAMINS W/ FOLIC ACID TABLET (FP) PO SCH (10:12)
[2018-03-17] MEDS: ENOXAPARIN NA (PORCINE) 40 MG/0.4 ML DISP.SYRIN SQ SCH (10:12)
[2018-03-17 10:22] VITALS: BP 122/74; PULSE 64
--- NOTE | 2018-03-19 13:25 | PATH ---
Surgical Pathology Report Patient Name: ANA MERRILL Med. Rec. 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 Specimen(s) Received PLACENTA Clinical History for repeat , x2, x1 EDC-03/21/18 Final Diagnosis PLACENTA, SECTION: 512 G THIRD TRIMESTER PLACENTA WITH TRIVASCULAR UMBILICAL CORD AND UNREMARKABLE PLACENTAL MEMBRANES. Electronically Signed Soila Woodward M.D. Gross Description The specimen is received fresh labeled placenta and is a 512 gram, 15.0 x 15.0 x 3.8 cm. placenta with attached membranes and umbilical cord. The attached membranes are chen, translucent with focal opacities and insert marginally. The umbilical cord measures 33 cm. in length and averages 1 cm. in diameter. The cord inserts eccentrically, 5 cm. to the nearest margin. No true knots or strictures are identified. Cut surface of the umbilical cord reveals 3 vessels. The surface is lam-blue with minimal fibrin deposition and appropriate caliber vessels. The maternal surface is red-brown with focal defects. Sectioning reveals red-brown, spongy parenchyma. No lesions are identified. Firer Watertender sections are submitted in three cassettes as follows: 1- membrane rolls and umbilical cord; 2-3- full thickness sections of placenta. 03/17/2018 [facility]03/17/2018
== END 2018-03-17 13:00 | disposition home or self-care (01) | DRG 540 ==
LOC: JDEL 17:45 → JLDR 18:50 → JICU 23:47 → J3W 03-14 21:58
PROVIDERS: ADMIT Obstetrics & Gynecology; ATTEND Obstetrics & Gynecology
PROC: 10D00Z1 Extraction of Products of Conception, Low, Open Approach (ICD-10-PCS; principal; 2018-03-13)
DX: O34.211 Maternal care for low transverse scar from previous cesarean delivery (principal); N85.8 Other specified noninflammatory disorders of uterus; O13.4 Gestational [pregnancy-induced] hypertension without significant proteinuria, complicating childbirth; I95.81 Postprocedural hypotension; Z3A.38 38 weeks gestation of pregnancy; O26.893 Other specified pregnancy related conditions, third trimester; R51 Headache; R00.1 Bradycardia, unspecified; Z37.0 Single live birth
CPT/HCPCS: 36415; 80048; 80053; 81003; 81015; 83735; 84100; 85025; 85027; 88307-TC; 90715; J0131

== ENCOUNTER 2018-11-17 21:20 | Emergency (ER) | payer OTHER ==
[2018-11-17 21:29] VITALS: BP 142/89; PULSE 83; TEMP 98; BMI 26.5
[2018-11-17] MEDS ORDERED: KETOROLAC TROMETHAMINE 60 MG/2 ML VIAL ONE (21:57)
[2018-11-17] MEDS ORDERED: CLINDAMYCIN HCL 150 MG CAPSULE (FP) ONE (21:58)
[2018-11-17] MEDS ORDERED: KETOROLAC TROMETHAMINE 60 MG/2 ML VIAL IM ONE (22:02)
[2018-11-17] MEDS ORDERED: CLINDAMYCIN HCL 150 MG CAPSULE (FP) PO ONE (22:02)
--- NOTE | 2018-11-17 23:19 | PDOC ---
Documentation entered by Viola Jackson SCRIBE, acting as scribe for Katt Anderson MD. Katt Anderson MD: This documentation has been prepared by the scribe, Viola Jackson SCRIBE, under my direction and personally reviewed by me in its entirety. I confirm that the documentation accurately reflects all work, treatment, procedures, and medical decision making performed by me. History of Present Illness - General Chief Complaint: Pain, Acute Stated Complaint: TOOTH PAIN TODAY History Source: Patient Exam Limitations: No Limitations - History of Present Illness Initial Comments: 11/17/18 22:03 The patient is a 33-year-old female, with no past medical history, who presents to the ED with pain to the LT lateral mandibular incisor that began at 3 PM today after eating pretzels. She describes the pain as throbbing in sensation, radiating up the LT side of his face. Pain progressively worsened at 8:30 PM tonight. She reports alternating between Ibuprofen and Tylenol with no relief of her symptoms. She has a scheduled appointment with her dentist tomorrow. The patient denies any fevers or chills. Denies any other injuries or symptoms. Allergies: Penicillins. Past History - Past Medical History Allergies/Adverse Reactions: Allergies Allergy/AdvReac Type Severity Reaction Status Date / Time Penicillins Allergy Verified 11/17/18 21:21 Home Medications: Ambulatory Orders Clindamycin HCl [Cleocin HCl] 300 mg PO TID #12 capsule 11/17/18 Asthma: No Cancer: No Cardiac Disorders: No Diabetes: No HTN: No Seizures: No Thyroid Disease: No - Reproductive History (#): 2 Para: 2 - Suicide/Smoking/Psychosocial Hx Smoking Status: Yes Smoking History: Current every day smoker Have you smoked in the past 12 months: Yes Number of Cigarettes Smoked Daily: 15 If you are a former smoker, when did you quit?: 07/27 Hx Alcohol Use: Yes (SOCIAL, not in ) Drug/Substance Use Hx: No Substance Use Type: None Hx Substance Use Treatment: No Review of Systems - Review of Systems Able to Perform ROS?: Yes Comments:: 11/17/18 22:04 GENERAL/CONSTITUTIONAL: No fever or chills. No weakness. HEAD, EYES, EARS, NOSE AND THROAT: (+)Pain to LT lateral mandibular incisor. No change in vision. No ear pain or discharge. No sore throat. CARDIOVASCULAR: No chest pain or shortness of breath. RESPIRATORY: No cough, wheezing, or hemoptysis. GASTROINTESTINAL: No nausea, vomiting, diarrhea or constipation. GENITOURINARY: No dysuria, frequency, or change in urination. MUSCULOSKELETAL: No joint swelling or pain. No neck or back pain. SKIN: No rash NEUROLOGIC: No headache, vertigo, loss of consciousness, or change in strength/ sensation. ENDOCRINE: No increased thirst. No abnormal weight change. HEMATOLOGIC/LYMPHATIC: No anemia, easy bleeding, or history of blood clots. ALLERGIC/IMMUNOLOGIC: No hives or skin allergy. *Physical Exam - Vital Signs Last Vital Signs Temp Pulse Resp BP Pulse Ox 98 F 83 16 142/89 100 11/17/18 21:23 11/17/18 21:23 11/17/18 21:23 11/17/18 21:23 11/17/18 21:23 - Physical Exam Comments: 11/17/18 22:06 GENERAL: Awake, alert, and fully oriented, in no acute distress ENT: Auricles normal inspection, hearing grossly normal, nares patent, oropharynx clear without exudates. Moist mucosa MOUTH: (+)Moderate tenderness at the base of the mandibular lateral incisor. (+) Minimal edema. No tooth fracture or defect seen in the enamel of the tooth. No erythema or fluctuance palpated. No other acute injury or abscess observed in the remainder of her exam. NECK:No masses or tenderness. No evidence of cervical lymphadenopathy. Normal ROM, supple, no JVD NEUROLOGICAL: Cranial nerves II through XII grossly intact. Normal speech. Medical Decision Making - Medical Decision Making As noted above, this 33-year-old woman with a history of apparent left wisdom tooth (mandibular) issues for which her dentist recommended extraction several months ago but no other known dental issues, presents with sudden onset of pain in the left lower lateral incisor tooth about 6 hours prior to presentation. The patient was eating pretzels at the time of onset but did not note any fracture of the tooth. Exam is noted: No evidence of fracture or defect in the enamel of the left lower lateral incisor tooth. She has mild to moderate tenderness at the base of the tooth without edema or erythema. No other acute dental abnormalities evident on exam. Because of the tenderness at the base of the tooth, early odontogenic infection may be present. Patient given first dose of clindamycin 300 mg now with prescription for 300 mg 3 times a day for 4 days sent to her pharmacy. She was also given Toradol 60 mg IM for anti-inflammatory and analgesic effects. Patient states that she had called her dentist soon after the onset of her pain and was told to come to the dental office tomorrow. Meanwhile, she can continue to alternate acetaminophen with ibuprofen or naproxen as needed for pain relief *DC/Admit/Observation/Transfer Diagnosis at time of Disposition: Tooth pain - Discharge Dispostion Disposition: HOME Condition at time of disposition: Stable - Prescriptions Prescriptions: Clindamycin HCl [Cleocin HCl] 300 mg PO TID #12 capsule - Referrals - Patient Instructions Printed Discharge Instructions: DI for Dental Pain Additional Instructions: Soft diet Clindamycin 300 mg 3 times a day for the next 4 days Follow-up with your dentist tomorrow as planned Alternate ibuprofen/naproxen with acetaminophen until seen by your dentist - Post Discharge Activity
== END 2018-11-17 22:18 | disposition home or self-care (01) ==
LOC: FER 21:20
PROC: 3E0233Z Introduction of Anti-inflammatory into Muscle, Percutaneous Approach (ICD-10-PCS; principal; 2018-11-17)
DX: K08.89 Other specified disorders of teeth and supporting structures (principal); F17.210 Nicotine dependence, cigarettes, uncomplicated
CPT/HCPCS: 99281-25

== ENCOUNTER 2019-03-20 09:40 | Emergency (ER) | payer OTHER ==
[2019-03-20 09:48] VITALS: BP 108/72; PULSE 95; TEMP 97.5; BMI 27.4
--- NOTE | 2019-03-20 10:15 | PDOC ---
History of Present Illness - General Chief Complaint: Pain Stated Complaint: LEFT UPPER ARM PAIN Time Seen by Provider: 03/20/19 10:14 - History of Present Illness Initial Comments: 03/20/19 10:23 Chief complaint: Left shoulder pain HPI: Left shoulder pain, primarily with extension, less so with other movements , for about 1 week. Onset immediately after receiving her flu shot. Using ice , heat, and ibuprofen without significant relief. Review of systems: Denies radiation of the pain to the forearm wrist or hand. Denies distal numbness tingling or weakness. Denies any other joint or muscle aches. Denies fever/chills, headache, URI symptoms, sore throat, cough, chest pain, shortness of breath, abdominal pain, nausea, vomiting, diarrhea, visual or focal neurologic symptoms, unsteadiness of gait. Past medical history: Childbirth, most recently May 2018, possible mild preeclampsia but without significant complication. Otherwise negative Social history: Stays at home, cares for children, no specific overuse of the arm, but she does lift and hold her children frequently, though recalls no injury. Family history: Reviewed and noncontributory Physical exam: Alert and oriented well-developed well-nourished no acute distress cheerful and cooperative Afebrile, vital signs normal PERRLA, ENT clear Neck supple without bruit mass or nodes Lungs clear CV regular without murmur rub or gallop Abdomen benign Neurological C2 to 12 intact. Strength full and symmetric. No focal sensory or motor deficits. Gait stable and unimpaired. Cerebellum intact. Extremities: There is no deformity, swelling, palpable effusion, erythema, or warmth present in the shoulder or upper arm. There is full range of motion, without significant pain except when extended fully, or reaching to the rear. There is no point tenderness. There is no crepitus with movement. Pulses are full. No distal sensory or motor deficits. No skin lesions or sign of prior injury/injection. Impression: It is unlikely that this is related to the flu shot. There are no signs of inflammation, and initial symptoms should have resolved by now. Suspect con commitment shoulder sprain or subacute tendinitis of the rotator cuff. Plan: X-ray, symptomatic treatment, and orthopedic referral. Recommend physical therapy if no improvement after conservative treatment. Past History - Past Medical History Allergies/Adverse Reactions: Allergies Allergy/AdvReac Type Severity Reaction Status Date / Time Penicillins Allergy Verified 03/20/19 09:42 Home Medications: Ambulatory Orders Ibuprofen 600 mg PO TID #20 tablet 03/20/19 Asthma: No Cancer: No Cardiac Disorders: No COPD: No Diabetes: No HTN: No Seizures: No Thyroid Disease: No Other medical history: denies - Reproductive History (#): 2 Para: 2 - Psycho Social/Smoking Cessation Hx Smoking Status: Yes Smoking History: Current every day smoker Have you smoked in the past 12 months: Yes Number of Cigarettes Smoked Daily: 12 If you are a former smoker, when did you quit?: 07/27 Information on smoking cessation initiated: Yes 'Breaking Loose' booklet given: 11/17/18 Hx Alcohol Use: (occasional) Drug/Substance Use Hx: No Substance Use Type: None Hx Substance Use Treatment: No *Physical Exam - Vital Signs Last Vital Signs Temp Pulse Resp BP Pulse Ox 97.5 F L 95 H 18 108/72 100 03/20/19 09:40 03/20/19 09:40 03/20/19 09:40 03/20/19 09:40 03/20/19 09:40 Medical Decision Making - Medical Decision Making 03/20/19 13:31 X-ray: Negative Symptomatic treatment including anti-inflammatories, ice, gentle range of motion exercises, and avoiding lifting or carrying heavy objects. Orthopedic follow-up in 1 week if symptoms persist, for examination, further evaluation, and possibly physical therapy. Fully ambulatory in no significant distress at discharge to follow-up as directed Discharge - Discharge Information Problems reviewed: Yes Clinical Impression/Diagnosis: Shoulder tendinitis Qualifiers: Laterality: left Qualified Code(s): M75.82 - Other shoulder lesions, left shoulder Condition: Stable Disposition: HOME - Admission No - Additional Discharge Information Prescriptions: Ibuprofen 600 mg PO TID #20 tablet - Follow up/Referral Referrals: Jet Pandya MD [Staff Physician] - 1 week - Patient Discharge Instructions Patient Printed Discharge Instructions: DI for Shoulder Tendinopathy Additional Instructions: Rest. Avoid exertion of the upper extremities and shoulder, and avoid lifting or carrying heavy objects. Apply ice 3-4 times daily for 20 to 30 minutes, with gentle massage Gentle stretching exercises as described, using the pendulum and wall walking techniques Anti-inflammatory medication 3 times daily for 4 to 5 days to decrease inflammation See orthopedist for follow-up if no improvement. Formal physical therapy may be necessary. - Post Discharge Activity
== END 2019-03-20 11:40 | disposition home or self-care (01) ==
LOC: FER 09:40
DX: M75.82 Other shoulder lesions, left shoulder (principal); F17.210 Nicotine dependence, cigarettes, uncomplicated; Z88.0 Allergy status to penicillin
CPT/HCPCS: 73030-TC-LT-FY; 99282-25

== ENCOUNTER 2019-09-16 12:59 | Emergency (ER) | payer OTHER ==
[2019-09-16 13:11] VITALS: BP 108/73; PULSE 65; TEMP 98.3; BMI 31.1
--- NOTE | 2019-09-16 13:54 | PDOC ---
History of Present Illness - General Chief Complaint: Laceration Stated Complaint: LACERATION TO RIGHT CALF Time Seen by Provider: 09/16/19 13:09 - History of Present Illness Initial Comments: 09/16/19 14:04 Chief complaint: Laceration HPI: Patient sustained a laceration, right posterior mid calf, on the lid of a can. Bleeding has been controlled. There is no pain. There is no distal numbness tingling pain or weakness in the ankle or foot. Ambulating normally Review of systems: As noted above. No other injuries, and otherwise reviewed and negative Past medical history: Denies serious medical or surgical problems past or present, or home medication. Social/family history reviewed and noncontributory Physical exam: Alert and oriented well-developed well-nourished no acute distress cooperative Afebrile, vital signs normal Posterior, mid right calf: 3 cm oblique laceration with sharp borders. Involving skin and superficial subcutaneous tissue. No deep punctures. No deep structures exposed. No bleeding. Pulses to the distal extremity intact. No distal sensory or motor deficits. Impression: Superficial laceration calf Plan: Repair, wound care instructions, follow-up for suture removal. Recheck immediately if sign of infection. Procedure note: Repair of laceration Local anesthesia 1% lidocaine plain Betadine prep of surrounding skin. Wound scrubbed and irrigated copiously with normal saline and explored. Superficial. Skin and superficial subcutaneous subcutaneous tissue involved. No deep punctures. No exposure of muscle or other deep structures. Wound edges approximated with 4-0 nylon sutures x5. Bacitracin. Band-Aid. Wound care instructions and follow-up for wound check of sign of infection, otherwise suture removal in 10 days. Fully ambulatory and in no pain or other distress, no gait disturbance, at discharge Past History - Medical History Allergies/Adverse Reactions: Allergies Allergy/AdvReac Type Severity Reaction Status Date / Time Penicillins Allergy Verified 09/16/19 13:04 Home Medications: Ambulatory Orders NK [No Known Home Medication] 09/16/19 Asthma: No Cancer: No Cardiac Disorders: No COPD: No Diabetes: No HTN: No Seizures: No Thyroid Disease: No - Reproductive History (#): 2 Para: 2 - Psycho-Social/Smoking History Smoking Status: Yes Smoking History: Current every day smoker Have you smoked in the past 12 months: Yes Number of Cigarettes Smoked Daily: 10 If you are a former smoker, when did you quit?: 07/27 Information on smoking cessation initiated: Yes 'Breaking Loose' booklet given: 11/17/18 - Substance Abuse Hx (Audit-C & DAST Scrn) How often the patient has a drink containing alcohol: 2-4 times / month Number of drinks the patient has on a typical day: 3 or 4 How often the patient has six or more drinks on one occasion: Never Score: In Men: 4 or > Positive; In Women: 3 or > Positive: 3 Screen Result (Pos requires Nsg. Audit-10AR): Positive In the last yr the pt used illegal drug/Rx for NonMed reason: No Score: Yes response is considered Positive: 0 Screen Result (Positive result requires Nsg. DAST-10): Negative *Physical Exam - Vital Signs Last Vital Signs Temp Pulse Resp BP Pulse Ox 98.3 F 65 16 108/73 100 09/16/19 13:02 09/16/19 13:02 09/16/19 13:02 09/16/19 13:02 09/16/19 13:02 Discharge - Discharge Information Problems reviewed: Yes Clinical Impression/Diagnosis: Laceration of leg Qualifiers: Encounter type: initial encounter Laterality: right Qualified Code(s): S81.811A - Laceration without foreign body, right lower leg, initial encounter Condition: Improved Disposition: HOME - Admission No - Follow up/Referral - Patient Discharge Instructions Patient Printed Discharge Instructions: DI for Laceration Repair Additional Instructions: Keep clean and dry. Change the bandage after 2 days, then daily thereafter, dressing with antibiotic ointment and keeping it covered until suture removal Sutures removed in 10 days. If there is sign of infection before that, such as redness, swelling, increased pain, or off colored drainage, return to the ER immediately for wound check. - Post Discharge Activity
== END 2019-09-16 14:16 | disposition home or self-care (01) ==
LOC: FER 12:59
PROC: 0HQKXZZ Repair Right Lower Leg Skin, External Approach (ICD-10-PCS; principal; 2019-09-16)
DX: S81.811A Laceration without foreign body, right lower leg, initial encounter (principal); W26.8XXA Contact with other sharp object(s), not elsewhere classified, initial encounter
CPT/HCPCS: 99282-25

== ENCOUNTER 2019-09-25 18:39 | Emergency (ER) | payer OTHER ==
[2019-09-25 18:43] VITALS: BP 122/75; PULSE 85; TEMP 98.2; BMI 31.4
--- NOTE | 2019-09-25 18:49 | PDOC ---
Suture Removal/Wound Check HPI - History of Present Illness Chief Complaint: Suture/Staple Removal(Here) Stated Complaint: SUTURE REMOVAL Time Seen by Provider: 09/25/19 18:48 History Source: Yes: Patient Exam Limitations: Yes: No Limitations - Onset of Previous Treatment Date of Occurence: 09/16/19 Comment:: 34 yo F presents for suture removal. Sutures placed to R lower leg on 09/15 after she cut herself with a can. Denies any drainage from the site. No fever, chills, redness. Past History - Medical History Allergies/Adverse Reactions: Allergies Allergy/AdvReac Type Severity Reaction Status Date / Time Penicillins Allergy Verified 09/25/19 18:41 Home Medications: Ambulatory Orders NK [No Known Home Medication] 09/16/19 Asthma: No Cancer: No Cardiac Disorders: No COPD: No Diabetes: No HTN: No Seizures: No Thyroid Disease: No - Reproductive History (#): 2 Para: 2 - Immunization History Immunization Up to Date: Yes - Psycho-Social/Smoking History Smoking Status: Yes Smoking History: Current every day smoker Have you smoked in the past 12 months: Yes Number of Cigarettes Smoked Daily: 10 If you are a former smoker, when did you quit?: 07/27 Information on smoking cessation initiated: Yes 'Breaking Loose' booklet given: 11/17/18 - Substance Abuse Hx (Audit-C & DAST Scrn) How often the patient has a drink containing alcohol: Never Score: In Men: 4 or > Positive; In Women: 3 or > Positive: 0 Screen Result (Pos requires Nsg. Audit-10AR): Negative In the last yr the pt used illegal drug/Rx for NonMed reason: No Score: Yes response is considered Positive: 0 Screen Result (Positive result requires Nsg. DAST-10): Negative *Review of Systems - Review of Systems Able to Perform ROS?: Yes GENERAL/CONSTITUTIONAL: No fever or chills. No weakness. MUSCULOSKELETAL: No joint or muscle swelling or pain. No neck or back pain. SKIN: No rash. *Physical Exam - Vital Signs Last Vital Signs Temp Pulse Resp BP Pulse Ox 98.2 F 85 20 122/75 99 09/25/19 18:40 09/25/19 18:40 09/25/19 18:40 09/25/19 18:40 09/25/19 18:40 - Physical Exam GENERAL: Awake, alert, and fully oriented, in no acute distress EXTREMITIES: Normal range of motion, no edema. No clubbing or cyanosis. No cords, erythema, or tenderness NEUROLOGICAL: Cranial nerves II through XII grossly intact. Normal speech, normal gait. Motor and sensation intact SKIN: Warm, dry, normal turgor, no rashes. +Sutures in place to R lower leg. Medical Decision Making - Medical Decision Making Sutures removed with forceps and #11 blade. Steristrips placed. Patient tolerated well. Stable for DC home. Discharge - Discharge Information Problems reviewed: Yes Clinical Impression/Diagnosis: Visit for suture removal Condition: Stable Disposition: HOME - Admission No - Follow up/Referral - Patient Discharge Instructions Patient Printed Discharge Instructions: DI for Suture Removal - Post Discharge Activity
== END 2019-09-25 18:52 | disposition home or self-care (01) ==
LOC: FER 18:39
DX: Z48.02 Encounter for removal of sutures (principal)
CPT/HCPCS: 99281-25

== ENCOUNTER 2020-11-08 11:49 | Emergency (ER) | payer OTHER ==
[2020-11-08 12:57] VITALS: BP 108/74; PULSE 64; TEMP 98.1; BMI 32.9
[2020-11-08] MEDS ORDERED: ONDANSETRON 4 MG TABLET PO ONE (13:15)
[2020-11-08] MEDS ORDERED: MECLIZINE HCL 25 MG TABLET (FP) PO ONE (13:16)
[2020-11-08] MEDS ORDERED: MECLIZINE HCL 25 MG TABLET (FP) ONE (13:19)
[2020-11-08] MEDS ORDERED: ONDANSETRON *ODT* 4 MG TABLET ONE (13:20)
[2020-11-08] MEDS ORDERED: SODIUM CHLORIDE 0.9% 500 ML INFUS.BAG IV ONE (14:11)
[2020-11-08 14:45] LABS: BASO % 0.9 % (0-2.0); EOS % 1.3 % (0-4.5); HEMATOCRIT 41.2 % (32.4-45.2); HEMOGLOBIN 13.6 GM/dl (10.7-15.3); LYMPH % 19.5 % (8-40); MCH 29.7 pg (25.7-33.7); MCHC 32.9 g/dl (32.0-36.0); MEAN CELL VOLUME 90.2 fl (80-96); MEAN PLT VOLUME 10.1 fl (7.5-11.1); MONO % 2.2 % (3.8-10.2); NEUT % 76.1 % (42.8-82.8); PLATELET COUNT 187 10^3/uL (134-434); RBC 4.57 M/mm3 (3.60-5.2); RDW 14.8 % (11.6-15.6); WHITE BLOOD COUNT 9.7 K/mm3 (4.0-10.8)
[2020-11-08 14:52] LABS: BILIRUBIN,TOTAL 0.4 mg/dl (0.2-1); CALCIUM 9.1 mg/dl (8.5-10); CREATININE 0.6 mg/dl (0.55-1.3); TOT PROT 7.1 g/dl (6.4-8.2)
[2020-11-08] MEDS ORDERED: diazePAM CARPU-JECT 10 MG/2 ML DISP.SYRIN IVPUSH ONE ×2 (15:10→15:11)
[2020-11-08] MEDS ORDERED: diazePAM CARPU-JECT 10 MG/2 ML DISP.SYRIN ONE (15:14)
== END 2020-11-08 16:30 | disposition home or self-care (01) ==
LOC: FER 11:49
PROC: 3E033GC Introduction of Other Therapeutic Substance into Peripheral Vein, Percutaneous Approach (ICD-10-PCS; principal; 2020-11-08)
DX: R42 Dizziness and giddiness (principal); R11.10 Vomiting, unspecified; H72.92 Unspecified perforation of tympanic membrane, left ear
CPT/HCPCS: 36415; 80053; 85025; 99284-25

== ENCOUNTER 2021-10-02 10:05 | Emergency (ER) | payer OTHER ==
[2021-10-02 10:27] VITALS: BP 118/76; PULSE 76; TEMP 98; BMI 32.9
[2021-10-02] MEDS ORDERED: ACETAMINOPHEN 500 MG TABLET (FP) PO ONE (10:35)
[2021-10-02] MEDS ORDERED: KETOROLAC TROMETHAMINE 15 MG/ML VIAL IM ONE (10:35)
[2021-10-02] MEDS ORDERED: ACETAMINOPHEN 500 MG TABLET (FP) ONE (10:36)
[2021-10-02] MEDS ORDERED: KETOROLAC TROMETHAMINE 15 MG/ML VIAL ONE (10:37)
== END 2021-10-02 10:47 | disposition home or self-care (01) ==
LOC: FER 10:05
PROC: 3E0233Z Introduction of Anti-inflammatory into Muscle, Percutaneous Approach (ICD-10-PCS; principal; 2021-10-02)
DX: S46.911A Strain of unspecified muscle, fascia and tendon at shoulder and upper arm level, right arm, initial encounter (principal); X50.0XXA Overexertion from strenuous movement or load, initial encounter
CPT/HCPCS: 73030-TC-RT-FY; 99284-25